=== PATIENT | female | born 1990 ===

== ENCOUNTER 2018-06-25 06:15 | Inpatient (IN) | payer OTHER ==
[2018-06-25] MEDS: OXYTOCIN 20 UNITS in 0.9% NS 20 UNIT/1,000 ML INFUS.BAG IV SCH ×2 (06:40→15:00)
[2018-06-25] MEDS ORDERED: WITCH HAZEL 50% (TUCKS) 40 PAD/JAR PAD TP PRN (07:03)
[2018-06-25] MEDS ORDERED: BENZOCAINE 20% 57 GM BOTTLE TP PRN (07:03)
[2018-06-25] MEDS ORDERED: BISACODYL 10 MG SUPP.RECT RC PRN (07:03)
[2018-06-25] MEDS ORDERED: BENZOCAINE 28 GM HEMORRHOIDAL OINTMENT TP PRN (07:03)
[2018-06-25] MEDS ORDERED: METHYLERGONOVINE MALEATE 0.2 MG/1 ML AMP IM PRN (07:03)
--- NOTE | 2018-06-25 07:11 | HP ---
Past Medical History - Primary Care Physician PCP:: Yuval Matias - Admission Chief Complaint: 39 weeks, labor History of Present Illness: 28 yo f g 6 p2 o32 edc 07/02/18 39 weeks, in labor cx full 100 vx 2+ and pushing on arrival History Source: Patient Limitations to Obtaining History: No Limitations - Past Medical History ...: 6 ...Para: 2 ...Term: 2 ...: 0 ...Spon : 0 ...Induced : 3 ... Weeks Gestation by Dates: 39 ...EDC by Dates: 07/02/18 - Past Surgical History Hx Myomectomy: No Hx Transabdominal Cerclage: No - Alcohol/Substance Use Hx Alcohol Use: No History of Substance Use: reports: None - Social History Usual Living Arrangement: Yes: With Spouse History of Recent Travel: No Home Medications - Allergies Allergies/Adverse Reactions: Allergies Allergy/AdvReac Type Severity Reaction Status Date / Time kiwi Allergy Verified 06/25/18 07:01 Review of Systems - Review of Systems Constitutional: reports: No Symptoms Eyes: reports: No Symptoms HENT: reports: No Symptoms Neck: reports: No Symptoms Cardiovascular: reports: No Symptoms Respiratory: reports: No Symptoms Gastrointestinal: reports: No Symptoms Genitourinary: reports: No Symptoms Breasts: reports: No Symptoms Reported Musculoskeletal: reports: No Symptoms Integumentary: reports: No Symptoms Neurological: reports: No Symptoms Endocrine: reports: No Symptoms Hematology/Lymphatic: reports: No Symptoms Psychiatric: reports: No Symptoms Physical Exam - Maternity Constitutional: Yes: Well Nourished, No Distress, Calm Eyes: Yes: WNL, Conjunctiva Clear, EOM Intact HENT: Yes: WNL, Atraumatic, Normocephalic Neck: Yes: WNL, Supple, Trachea Midline Cardiovascular: Yes: WNL, Regular Rate and Rhythm Breast(s): Yes: WNL - Abdominal Exam/OB Fundal Height: 40 Number of Fetuses: Single Presentation: Vertex Contractions: Yes Regularity: Regular Intensity: Strong Monitor Mode: External Heart Rate Location: [facility] - Vaginal Exam/OB Vaginal Bleediing: Bloody Show Speculum Exam: No Dilatation (cm): full Effacement (%): 100 Amniotic Membrane Status: Bulging Presentation: Vertex/Position Station: +2 - Physical Exam Musculoskeletal: Yes: WNL Extremities: Yes: WNL Edema: Yes Edema: LLE: Trace, RLE: Trace Deep Tendon Reflex Grade: Normal +2 Hemorrhage Risk Assessment - Risk Factors Medium Risk Factors: Yes: None High Risk Factors: Yes: None Risk Score: 1 Risk Level: Medium Risk Problem List - Problems (1) with 39 completed weeks gestation Code(s): Z3A.39 - 39 WEEKS GESTATION OF (2) Labor established Code(s): RHG1625 - Assessment/Plan fully dilated , pushing, , will have vaginal delivery on admission GBS positve was not txed because delivery on arrival
[2018-06-25] MEDS ORDERED: D5W-LR W/ 20 UNITS OXYTOCIN 20 UNIT/1,000 ML INFUS.BAG IV SCH (07:15)
--- NOTE | 2018-06-25 07:17 | PN ---
Delivery - Delivery Vaginal Delivery: Spontaneous (on arrival to delivery room was pushing, haed delivered , cord around neck twice , reduced . ant. and post. shoulder delivered with no difficulty , live baby girl 9/9 , no laceration, EBL 300 cc , no complication) Episiotomy/Laceration: None EBL (cc): 300 Delivery, Single - Stages of Labor Date 1st Stage Initiatied: 06/25/18 Time 1st Stage Initiated: 05:00 Date 2nd Stage Initiated: 06/25/18 Time 2nd Stage Initiated: 06:30 Date of Delivery: 06/25/18 Time of Delivery: 06:36 Time Placenta Delivered: 06:40 - Condition of Real Estate Office Supervisor/Bellhop Captain Present: No Infant Gender: Male Position: Left, OA Total Hours ROM (Hrs/Mins): 0h5m - 1 Minute Total Score: 9 5 Minutes Total Score: 9
[2018-06-25 07:24] VITALS: BMI 38.9
[2018-06-25 08:24] LABS: ANION GAP 6 MMOL/L (8-16); BASO % 0.2 % (0-2.0); BLOOD UREA NITROGEN 4 mg/dL (7-18); CALCIUM 8.4 mg/dL (8.5-10.1); CHLORIDE 108 mmol/L (98-107); CO2 24 mmol/L (21-32); CREATININE 0.5 mg/dL (0.55-1.3); EOS % 0.8 % (0-4.5); GLUCOSE,RANDOM 82 mg/dL (74-106); HEMOGLOBIN 11.3 GM/dL (10.7-15.3); LYMPH % 13.5 % (8-40); MCHC 32.4 g/dl (32.0-36.0); MEAN PLT VOLUME 7.6 fl (7.5-11.1); MONO % 8.5 % (3.8-10.2); PLATELET COUNT 321 K/MM3 (134-434); POTASSIUM 3.7 mmol/L (3.5-5.1); RBC 4.54 M/mm3 (3.60-5.2); RDW 15.3 % (11.6-15.6); SODIUM 137 mmol/L (136-145); WHITE BLOOD COUNT 15.9 K/mm3 (4.0-10.0)
[2018-06-25 08:57] LABS: INR 0.96 (0.83-1.09); PROTHROMBIN TIME (PATIENT) 11.3 SEC (9.7-13.0)
[2018-06-25 09:00] LABS: ACTIVATED PTT 26.5 SECONDS (25.2-36.5)
[2018-06-25] MEDS ORDERED: TUBERCULIN PPD 5 TU/0.1ML SYRINGE (IN PATIENT USE ONLY) ID ONE (09:00)
[2018-06-25] MEDS: ACETAMINOPHEN 325 MG TABLET (FP) PO PRN ×3 (10:14→20:29)
[2018-06-25] MEDS: IBUPROFEN 600 MG TABLET (FP) PO PRN ×3 (10:15→20:29)
[2018-06-25] MEDS: FERROUS SO4 325 MG TABLET (FP) PO SCH ×2 (10:16→23:20)
[2018-06-25] MEDS: PRENATAL VITAMINS W/ FOLIC ACID TABLET (FP) PO SCH (10:16)
[2018-06-26 08:54] LABS: BASO % 0.4 % (0-2.0); EOS % 2.1 % (0-4.5); HEMATOCRIT 29.9 % (32.4-45.2); HEMOGLOBIN 9.9 GM/dL (10.7-15.3); LYMPH % 21.2 % (8-40); MCH 25.1 pg (25.7-33.7); MEAN CELL VOLUME 75.9 fl (80-96); MEAN PLT VOLUME 7.1 fl (7.5-11.1); MONO % 10.9 % (3.8-10.2); NEUT % 65.4 % (42.8-82.8); PLATELET COUNT 310 K/MM3 (134-434); RBC 3.94 M/mm3 (3.60-5.2); RDW 15.1 % (11.6-15.6); WHITE BLOOD COUNT 11.4 K/mm3 (4.0-10.0)
[2018-06-26] MEDS: FERROUS SO4 325 MG TABLET (FP) PO SCH ×2 (09:14→22:13)
[2018-06-26] MEDS: PRENATAL VITAMINS W/ FOLIC ACID TABLET (FP) PO SCH (09:14)
--- NOTE | 2018-06-26 09:30 | PN ---
Post Progress Note - Subjective Subjective: Patient without acute complaints. Reports tolerating oral intake without nausea or vomiting. Ambulating without dizziness. Denies fevers or chills. Pain well controlled with oral pain medication. Pumping/breast feeding without issue. Passing flatus, BM. Post Day: 1 Type of Delivery: Vital Signs: Vital Signs Temperature 98.3 F 06/26/18 07:50 Pulse Rate 97 H 06/26/18 07:50 Respiratory Rate 18 06/26/18 07:50 Blood Pressure 132/82 06/26/18 07:50 O2 Sat by Pulse Oximetry (%) Breast Exam: Yes: Soft Uterus: Yes: Fundus Firm, Non-tender Abdomen/GI: Yes: Abdomen soft, Tolerating PO Lochia: Yes: Rubra Lochia, amount: Small Extremities: Yes: Calves non-tender Perineum: Yes: Intact Activity: Ambulating - Labs Labs: CBC WBC 11.4 K/mm3 (4.0-10.0) H 06/26/18 08:30 RBC 3.94 M/mm3 (3.60-5.2) 06/26/18 08:30 Hgb 9.9 GM/dL (10.7-15.3) L 06/26/18 08:30 Hct 29.9 % (32.4-45.2) L 06/26/18 08:30 MCV 75.9 fl (80-96) L 06/26/18 08:30 MCH 25.1 pg (25.7-33.7) L 06/26/18 08:30 MCHC 33.0 g/dl (32.0-36.0) 06/26/18 08:30 RDW 15.1 % (11.6-15.6) 06/26/18 08:30 Plt Count 310 K/MM3 (134-434) 06/26/18 08:30 MPV 7.1 fl (7.5-11.1) L 06/26/18 08:30 Absolute Neuts (auto) 7.4 K/mm3 (1.5-8.0) 06/26/18 08:30 Neutrophils % 65.4 % (42.8-82.8) 06/26/18 08:30 Lymphocytes % 21.2 % (8-40) D 06/26/18 08:30 Monocytes % 10.9 % (3.8-10.2) H 06/26/18 08:30 Eosinophils % 2.1 % (0-4.5) D 06/26/18 08:30 Basophils % 0.4 % (0-2.0) 06/26/18 08:30 Nucleated RBC % 0 % (0-0) 06/26/18 08:30 Assessment/Plan 28yo s/p , doing well stable, afebrile. Asymptomatic for anemia. care instructions reviewed. Continue routine care. Ambulation encouraged Discharge instruction reviewed.
--- NOTE | 2018-06-26 09:40 | DS ---
Physical Exam-MANAGER CLIENT Vital Signs: Vital Signs Temperature 98.3 F 06/26/18 07:50 Pulse Rate 97 H 06/26/18 07:50 Respiratory Rate 18 06/26/18 07:50 Blood Pressure 132/82 06/26/18 07:50 O2 Sat by Pulse Oximetry (%) Constitutional: Yes: Well Nourished, No Distress, Calm Eyes: Yes: WNL, Conjunctiva Clear, EOM Intact HENT: Yes: WNL, Atraumatic, Normocephalic Neck: Yes: WNL, Supple, Trachea Midline Cardiovascular: Yes: WNL, Regular Rate and Rhythm Respiratory: Yes: WNL, Regular, CTA Bilaterally Gastrointestinal: Yes: WNL, Normal Bowel Sounds, Soft ...Rectal Exam: Yes: Deferred Renal/: Yes: WNL Internal Exam Deferred: Yes ....Post : Yes: Uterus firm, Uterus non-tender, Slight lochia rubra Breast(s): Yes: WNL Musculoskeletal: Yes: WNL Extremities: Yes: WNL Edema: Yes Edema: LLE: Trace, RLE: Trace Integumentary: Yes: WNL Neurological: Yes: WNL, Alert, Oriented ...Motor Strength: WNL Psychiatric: Yes: WNL, Alert, Oriented Labs: CBC, BMP 06/26/18 08:30 06/25/18 07:50 Delivery - Delivery Vaginal Delivery: No Problems, Spontaneous (on arrival to delivery room was pushing, haed delivered , cord around neck twice , reduced . ant. and post. shoulder delivered with no difficulty , live baby girl 9/9 , no laceration , EBL 300 cc , no complication) Type of Anesthesia: None Episiotomy/Laceration: None EBL (cc): 300 Delivery, Single - Stages of Labor Date 1st Stage Initiatied: 06/25/18 Time 1st Stage Initiated: 05:00 Date 2nd Stage Initiated: 06/25/18 Time 2nd Stage Initiated: 06:30 Date of Delivery: 06/25/18 Time of Delivery: 06:36 Time Placenta Delivered: 06:40 Placenta: Yes: Spontaneous, Normal Configuration - Condition of Education Rn/Quality Consultant Present: No Infant Gender: Male Position: Left, OA Total Hours ROM (Hrs/Mins): 0h5m - 1 Minute Total Score: 9 5 Minutes Total Score: 9 - [place] Feeding Plan Initial Plan: Elected not to breastfeed exclusively throughout hospitalization Discharge Summary Reason For Visit: LABOR ADMIT Current Active Problems Labor established (Acute) with 39 completed weeks gestation (Acute) Procedures: Principal: [facility] Hospital Course: Normal recovery Condition: Good - Instructions Diet, Activity, Other Instructions: Physical activity Resume your normal everyday activity as tolerated no heavy lifting or exercise until seen by your surgeon. You may walk unlimited jason of and climb stairs. You may resume driving the car when you feel safe and comfortable behind the wheel. No sexual activity as instructed. Wound care If you have a bandage, leave it on, and keep dry for 48-72 hours. After that time discard the outer bandage. If they are tapes on the skin under the out of bandage leave them in place. They will peel off in the next 7 to 10 days. Do Not Peel them off. You may shower the day after surgery. If there are tapes present on the skin, you may shower over them. Diet There are no dietary restrictions. Eat healthy, high-fiber foods. Drink 6 to 8 glasses of liquid each day. This will assist in keeping your bowels are regular. Pain management You may take Tylenol or acetaminophen or Ibuprofen (for example, Motrin, Advil etc.) from my pain prescription medication is ordered should be taken as prescribed for moderate to severe pain. Call MD for any of the following: Severe pain not relieved by medication Fever of 101 or higher Excessive bleeding or drainage on dressing Inability to urinate Referrals: Féilx French MD [Staff Physician] - Disposition: HOME
[2018-06-26] MEDS: IBUPROFEN 600 MG TABLET (FP) PO PRN ×2 (14:15→22:13)
[2018-06-26] MEDS: ACETAMINOPHEN 325 MG TABLET (FP) PO PRN ×2 (14:16→22:12)
[2018-06-26] MEDS ORDERED: SENNOSIDES/DOCUSATE COMBO (SENNA PLUS) TABLET (UD) PO PRN (22:00)
[2018-06-27] MEDS: OXYTOCIN 20 UNITS in 0.9% NS 20 UNIT/1,000 ML INFUS.BAG IV SCH (00:16)
[2018-06-27] MEDS: IBUPROFEN 600 MG TABLET (FP) PO PRN (07:08)
[2018-06-27] MEDS: ACETAMINOPHEN 325 MG TABLET (FP) PO PRN (07:08)
--- NOTE | 2018-06-27 08:52 | PN ---
Post Progress Note - Subjective Subjective: No complaints. Post Day: 2 Type of Delivery: Vital Signs: Vital Signs Temperature 97.9 F 06/26/18 22:00 Pulse Rate 87 06/26/18 22:00 Respiratory Rate 18 06/26/18 22:00 Blood Pressure 136/77 06/26/18 22:00 O2 Sat by Pulse Oximetry (%) Breast Exam: Yes: Soft Uterus: Yes: Fundus Firm, Fundus below umbilicus, Non-tender Abdomen/GI: Yes: Abdomen soft, Passing flatus, Tolerating PO Lochia: Yes: Rubra Lochia, amount: Small Extremities: Yes: Calves non-tender, Edema (trace) Perineum: Yes: Intact Activity: Ambulating - Labs Labs: CBC WBC 11.4 K/mm3 (4.0-10.0) H 06/26/18 08:30 RBC 3.94 M/mm3 (3.60-5.2) 06/26/18 08:30 Hgb 9.9 GM/dL (10.7-15.3) L 06/26/18 08:30 Hct 29.9 % (32.4-45.2) L 06/26/18 08:30 MCV 75.9 fl (80-96) L 06/26/18 08:30 MCH 25.1 pg (25.7-33.7) L 06/26/18 08:30 MCHC 33.0 g/dl (32.0-36.0) 06/26/18 08:30 RDW 15.1 % (11.6-15.6) 06/26/18 08:30 Plt Count 310 K/MM3 (134-434) 06/26/18 08:30 MPV 7.1 fl (7.5-11.1) L 06/26/18 08:30 Absolute Neuts (auto) 7.4 K/mm3 (1.5-8.0) 06/26/18 08:30 Neutrophils % 65.4 % (42.8-82.8) 06/26/18 08:30 Lymphocytes % 21.2 % (8-40) D 06/26/18 08:30 Monocytes % 10.9 % (3.8-10.2) H 06/26/18 08:30 Eosinophils % 2.1 % (0-4.5) D 06/26/18 08:30 Basophils % 0.4 % (0-2.0) 06/26/18 08:30 Nucleated RBC % 0 % (0-0) 06/26/18 08:30 Assessment/Plan 28yo PPD#2 s/p , doing well stable, afebrile. care instructions reviewed. Continue routine care. Ambulation encouraged Discharge instruction reviewed.
[2018-06-27] MEDS: PRENATAL VITAMINS W/ FOLIC ACID TABLET (FP) PO SCH (10:33)
[2018-06-27] MEDS: FERROUS SO4 325 MG TABLET (FP) PO SCH (10:33)
[2018-06-27 11:14] VITALS: BP 118/73; PULSE 88; TEMP 97.8
== END 2018-06-27 11:40 | disposition home or self-care (01) | DRG 807 ==
LOC: JLDR 06:15 → J3W 08:05
PROVIDERS: ADMIT Obstetrics & Gynecology; ATTEND Obstetrics & Gynecology
PROC: 10E0XZZ Delivery of Products of Conception, External Approach (ICD-10-PCS; principal; 2018-06-25)
DX: O69.81X0 Labor and delivery complicated by cord around neck, without compression, not applicable or unspecified (principal); Z37.0 Single live birth; O99.02 Anemia complicating childbirth; D64.9 Anemia, unspecified; O99.824 Streptococcus B carrier state complicating childbirth; Z3A.39 39 weeks gestation of pregnancy
CPT/HCPCS: 36415; 59409; 80048; 85025; 85610; 85730; 86593; 86850; 86900; 86901